=== PATIENT | female | born 1930 | race African-American/Black ===

== ENCOUNTER 2016-08-19 11:33 | Emergency (ER) | payer MEDICARE ==
[2016-08-19] MEDS ORDERED: NACL 0.9% 1000 ML 1,000 ML IV ONE (12:22)
[2016-08-19] MEDS ORDERED: ZOSYN/NS 3.375GM/50ML 3.375 GM/50 ML BAG IV ONE ×2 (12:23→15:46)
[2016-08-19 12:54] LABS: Basophils % (Auto) 0.2 % (0.0-1.8); Eosinophils % (Auto) 1.1 % (0.0-4.3); Hematocrit 40.5 % (30.3-42.9); Hemoglobin 13.8 gm/dl (10.1-14.3); Mean Corpuscular HGB Conc 34 % (30-34); Mean Corpuscular Hemoglobin 31 pg (28-32); Mean Corpuscular Volume 92 fl (79-97); Platelet Count 229 K/mm3 (140-440); Red Blood Count 4.39 M/mm3 (3.65-5.03); Red Cell Distribution Width 12.7 % (13.2-15.2); White Blood Count 9.1 K/mm3 (4.5-11.0)
[2016-08-19 13:02] LABS: Partial Thromboplastin Time 30.3 Sec. (24.2-36.6)
[2016-08-19 13:14] LABS: Alanine Aminotransferase 11 units/L (7-56); Albumin 3.4 g/dL (3.9-5); Albumin/Globulin Ratio 0.8 %; Alkaline Phosphatase 62 units/L (35-129); Anion Gap 17 mmol/L; Bilirubin,Total 0.9 mg/dL (0.1-1.2); Blood Urea Nitrogen 7 mg/dL (7-17); Calcium 8.6 mg/dL (8.4-10.2); Carbon Dioxide 27 mmol/L (22-30); Chloride 90.2 mmol/L (98-107); Glucose 114 mg/dL (65-100); Lipase 28 units/L (13-60); Potassium 3.6 mmol/L (3.6-5.0); Sodium 131 mmol/L (137-145); Total Protein 7.6 g/dL (6.3-8.2)
--- NOTE | 2016-08-19 13:14 | XRay Report ---
Single view chest: History: Abdominal pain. Findings: Cardiomegaly. Trachea is midline. Mild COPD. No acute consolidation no pleural effusion or pneumothorax. Impression: No acute cardiopulmonary findings.
[2016-08-19 13:39] LABS: Bilirubin,Direct < 0.2 mg/dL (0-0.2); Bilirubin,Indirect 0.7 mg/dL
--- NOTE | 2016-08-19 17:09 | Cat Scan Report ---
FINAL REPORT PROCEDURE: CT ABDOMEN PELVIS WO CON TECHNIQUE: Computerized axial tomography of the abdomen and pelvis was performed without intravenous contrast. This study is performed without intravascular contrast material and its sensitivity for abdominal and pelvic pathology, including neoplasms, inflammation, abscess, free fluid, thrombosis, arterial dissection and infarction, is reduced compared with a contrast enhanced study. The majority of the bowel is not opacified with oral contrast limiting evaluation as well. HISTORY: G tube study and abd distention COMPARISON: Contrast-enhanced CT of the abdomen and pelvis 01/17/2013 FINDINGS: Visualized lower thorax: No significant abnormality. Liver: Few stable cysts the largest of which is of the posterior segment of the right lobe 11 millimeters. Spleen: Normal size and attenuation. Gallbladder and biliary system: Normal. Pancreas: Visualized portions normal. Partially obscured by beam hardening artifact from dense contrast within the adjacent stomach and duodenum. Adrenals: Normal. Kidneys: 3 millimeter lower pole right renal calculus. Unremarkable left kidney. Cysts seen previously with IV contrast not visualized. GI tract: NG tube in place. Injected oral contrast within the stomach and 1st and 2nd portion of the duodenum. No contrast extravasation. Mild sigmoid diverticulosis. No bowel obstruction. The appendix is normal. Lymph nodes and mesentery: Normal. Vasculature: Calcific atherosclerosis. No abdominal aortic aneurysm. Bladder: Normal. Reproductive organs: Normal. Peritoneum: No free fluid. Musculoskeletal structures: Stable degenerative changes of the spine. Other: None. IMPRESSION: G-tube within the stomach. Injected oral contrast within the stomach. No contrast extravasation. Stable in size hepatic cysts. Tiny right renal calculus. Stable degenerative changes of the spine. Mild sigmoid diverticulosis.
--- NOTE | 2016-08-19 18:23 | Emergency Department Report ---
ED General Adult HPI - General Chief complaint: Tube Replacement Stated complaint: G-TUBE PROBLEMS Time Seen by Provider: 08/19/16 12:18 Source: family Mode of arrival: Ambulatory Limitations: Altered Mental Status, Physical Limitation - History of Present Illness Initial comments: Patient's son was essentially concerned about the position of the G-tube and erythema about the site. He states that there is been some erythema about the site of the G-tube for the last few days. There's been no fever or chills. He denies any unusual bowel movement or urinary output. He states that he is able to use the G-tube and has been using it routinely. He was concerned that the fluid was passing freely into the G-tube rather than him seeing what he is describing as respiratory variations in the fluid when he feeds. Patient is status post intracranial hemorrhage and is unable to communicate. Otherwise the family has not identified any other change in her health status. -: days(s) - Related Data Home Medications Medication Instructions Recorded Confirmed Last Taken Albuterol Sulfate [Albuterol 0.63% 01/19/16 01/19/16 NEBS] Esomeprazole Magnesium [NexIUM] 40 mg PO QDAY 01/19/16 01/19/16 01/19/16 Menthol/Zinc Oxide [Calmoseptine 01/19/16 01/19/16 Ointment] Promethazine Dm [Phenergan DM 5 ml PO Q6H PRN 01/19/16 01/19/16 01/19/16 6.25-15 mg/5 ml] Ranitidine HCl 01/19/16 01/19/16 Simvastatin [Zocor TAB] 01/19/16 01/19/16 Transderm-Scop 5 ml FEEDTUBE Q6MIN PRN 01/19/16 01/19/16 01/19/16 amLODIPine [Norvasc] 5 mg PO DAILY 01/19/16 01/19/16 01/19/16 Previous Rx's Medication Instructions Recorded Last Taken Type Sulfamethoxazole/Trimethoprim 20 ml PO BID #140 ml 08/19/16 Unknown Rx [Bactrim 200-40 mg/5 ml Oral Liq] Allergies Allergy/AdvReac Type Severity Reaction Status Date / Time No Known Allergies Allergy Unverified 01/19/16 11:34 ED Review of Systems ROS: Stated complaint: G-TUBE PROBLEMS Other details as noted in HPI Comment: Unobtainable due to pts medical conditions ED Past Medical Hx - Past Medical History Previous Medical History?: Yes Hx Hypertension: Yes Hx CVA: Yes (hemmorragic stroke 2011) Hx Heart Attack/AMI: Yes Hx GERD: Yes Additional medical history: 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; aphasic; 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 - Surgical History Past Surgical History?: Yes Additional Surgical History: PEG Tube 2011 - Social History Smoking Status: Former Smoker Substance Use Type: None - Medications Home Medications: Home Medications Medication Instructions Recorded Confirmed Last Taken Type Albuterol Sulfate [Albuterol 0.63% 01/19/16 01/19/16 History NEBS] Esomeprazole Magnesium [NexIUM] 40 mg PO QDAY 01/19/16 01/19/16 01/19/16 History Menthol/Zinc Oxide [Calmoseptine 01/19/16 01/19/16 History Ointment] Promethazine Dm [Phenergan DM 5 ml PO Q6H PRN 01/19/16 01/19/16 01/19/16 History 6.25-15 mg/5 ml] Ranitidine HCl 01/19/16 01/19/16 History Simvastatin [Zocor TAB] 01/19/16 01/19/16 History Transderm-Scop 5 ml FEEDTUBE Q6MIN PRN 01/19/16 01/19/16 01/19/16 History amLODIPine [Norvasc] 5 mg PO DAILY 01/19/16 01/19/16 01/19/16 History Sulfamethoxazole/Trimethoprim 20 ml PO BID #140 ml 08/19/16 Unknown Rx [Bactrim 200-40 mg/5 ml Oral Liq] ED Physical Exam - General Limitations: Altered Mental Status, Physical Limitation General appearance: alert - Head Head exam: Present: atraumatic - Eye Eye exam: Absent: scleral icterus - ENT ENT exam: Present: mucous membranes moist - Neck Neck exam: Present: normal inspection. Absent: tenderness, meningismus - Respiratory Respiratory exam: Present: normal lung sounds bilaterally. Absent: respiratory distress - Cardiovascular Cardiovascular Exam: Present: regular rate, normal rhythm. Absent: systolic murmur, diastolic murmur, rubs, gallop - GI/Abdominal GI/Abdominal exam: Present: soft, normal bowel sounds, other (the G-tube site is erythematous perhaps to a 1-2 cm margin.). Absent: distended, tenderness, guarding, rebound, rigid - Extremities Exam Extremities exam: Present: other (contracted). Absent: pedal edema, calf tenderness - Neurological Exam Neurological exam: Present: other (functional quadriparesis) - Psychiatric Psychiatric exam: Present: flat affect - Skin Skin exam: Present: warm, dry, intact, other (G-tube site findings). Absent: rash ED Course Vital Signs 08/19/16 11:57 Temperature 98.2 F Pulse Rate 96 H Blood Pressure 122/62 O2 Sat by Pulse 95 Oximetry - Reevaluation(s) Reevaluation #1: Patient was given Zosyn and a liter of normal saline. She was found to be mildly hyponatremic. I believe that should be ample treatment for it at this juncture. She will be better served with home care and be exposed to the hospital environment. She will be discharged on Bactrim liquid. Follow-up instructions were discussed with the family as well as return criteria. 08/19/16 18:26 ED Medical Decision Making - Lab Data Result diagrams: 08/19/16 12:30 08/19/16 12:30 Laboratory Results - last 24 hr 08/19/16 08/19/16 08/19/16 12:30 12:30 12:30 WBC 9.1 RBC 4.39 Hgb 13.8 Hct 40.5 MCV 92 MCH 31 MCHC 34 RDW 12.7 L Plt Count 229 Lymph % (Auto) 14.3 [place] % (Auto) 13.3 H Eos % (Auto) 1.1 Baso % (Auto) 0.2 Lymph # 1.3 [place] # 1.2 H Eos # 0.1 Baso # 0.0 Seg Neutrophils % 71.1 H Seg Neutrophils # 6.4 PT 13.1 INR 1.00 APTT 30.3 Sodium Potassium Chloride Carbon Dioxide Anion Gap BUN Creatinine Estimated GFR BUN/Creatinine Ratio Glucose Calcium Total Bilirubin Direct Bilirubin Indirect Bilirubin AST ALT Alkaline Phosphatase Troponin T NT-Pro-B Natriuret Pep Total Protein Albumin Albumin/Globulin Ratio Amylase 35 Lipase Blood Type Antibody Screen 08/19/16 08/19/16 08/19/16 12:30 12:30 12:30 WBC RBC Hgb Hct MCV MCH MCHC RDW Plt Count Lymph % (Auto) [place] % (Auto) Eos % (Auto) Baso % (Auto) Lymph # [place] # Eos # Baso # Seg Neutrophils % Seg Neutrophils # PT INR APTT Sodium 131 L Potassium 3.6 Chloride 90.2 L Carbon Dioxide 27 Anion Gap 17 BUN 7 Creatinine 0.4 L Estimated GFR > 60 BUN/Creatinine Ratio 17.50 Glucose 114 H Calcium 8.6 Total Bilirubin 0.9 Direct Bilirubin < 0.2 Indirect Bilirubin 0.7 AST 17 ALT 11 Alkaline Phosphatase 62 Troponin T < 0.010 NT-Pro-B Natriuret Pep 153.5 Total Protein 7.6 Albumin 3.4 L Albumin/Globulin Ratio 0.8 Amylase Lipase 28 Blood Type O POSITIVE Antibody Screen Negative - Radiology Data Radiology results: report reviewed interpreted by me: CT Demonstrated the G-tube within the stomach with no extravasation of contrast. Chest x-ray showed no acute process Critical care attestation.: If time is entered above; I have spent that time in minutes in the direct care of this critically ill patient, excluding procedure time. ED Disposition Clinical Impression: Skin infection at gastrostomy tube site, Hyponatremia Disposition: DISCHARGED TO HOME OR SELFCARE Is pt being admited?: No Does the pt Need Aspirin: No Condition: Stable Instructions: Cellulitis (ED) Additional Instructions: You may continue to use the G-tube. Return if redness worsens despite antibiotics. Return any fever or change in patient's status if your concern. Follow-up with her primary care physician. Prescriptions: Sulfamethoxazole/Trimethoprim [Bactrim 200-40 mg/5 ml Oral Liq] 20 ml PO BID # 140 ml Referrals: PRIMARY CARE [Primary Care Provider] - 2-3 Days Time of Disposition: 18:31
[2016-08-19 19:31] VITALS: BP 124/66
== END 2016-08-19 19:37 | disposition home or self-care (01) ==
LOC: ED 11:33
DX: K94.22 Gastrostomy infection (principal); E87.1 Hypo-osmolality and hyponatremia; I10 Essential (primary) hypertension; I25.2 Old myocardial infarction; K21.9 Gastro-esophageal reflux disease without esophagitis; Z86.73 Personal history of transient ischemic attack (TIA), and cerebral infarction without residual deficits
CPT/HCPCS: 36415; 43760; 71010; 74176; 80048; 80074; 82150; 83690; 83880; 84484; 85025; 85610; 85730; 86850; 86900; 86901; 87040; 96365; 99284; J2543; J7030

== ENCOUNTER 2016-08-23 11:05 | Inpatient (IN) | payer MEDICAID, MEDICARE ==
[2016-08-23] MEDS ORDERED: WATER FOR INJ (PF) 10 ML ONE ×2 (11:35→12:07)
[2016-08-23 12:58] LABS: Basophils % (Auto) 0.2 % (0.0-1.8); Eosinophils % (Auto) 0.1 % (0.0-4.3); Hematocrit 39.6 % (30.3-42.9); Hemoglobin 13.2 gm/dl (10.1-14.3); Mean Corpuscular HGB Conc 33 % (30-34); Mean Corpuscular Hemoglobin 31 pg (28-32); Mean Corpuscular Volume 92 fl (79-97); Platelet Count 316 K/mm3 (140-440); Red Cell Distribution Width 12.1 % (13.2-15.2); White Blood Count 10.1 K/mm3 (4.5-11.0)
[2016-08-23 12:59] LABS: Anion Gap 14 mmol/L; Blood Urea Nitrogen 10 mg/dL (7-17); Calcium 8.7 mg/dL (8.4-10.2); Carbon Dioxide 27 mmol/L (22-30); Chloride 91.9 mmol/L (98-107); Glucose 88 mg/dL (65-100); Potassium 4.1 mmol/L (3.6-5.0); Sodium 129 mmol/L (137-145)
[2016-08-23] MEDS ORDERED: WATER FOR INJ (PF) IM ONE (13:00)
--- NOTE | 2016-08-23 13:36 | XRay Report ---
G-TUBE STUDY History: Evaluate PEG tube. Findings: A PEG tube is located in the left upper quadrant. On the group home manager image, the bowel gas pattern is unremarkable. A second image of the abdomen was obtained following injection of oral contrast through the PEG tube which outlines the stomach and multiple proximal small bowel loops. There is no evidence for extravasation or obstruction. Impression: Unremarkable PEG tube.
[2016-08-23] MEDS ORDERED: NACL 0.9% 1000 ML 1,000 ML IV ONE (14:31)
--- NOTE | 2016-08-23 14:48 | Admit Criteria Form ---
Admission Criteria Documentation: HYPONATREMIA; HYPERNATREMIA; HYPOKALEMIA; HYPERKALEMIA; HYPOCALCEMIA; HYPERCALCEMIA Clinical Indications for Inpatient Care (Place 'X' for any and all applicable criteria): Ongoing inpatient care may be indicated for ANY ONE of the following [G](1)(2)(3 )(5): [ X]I. Hyponatremia with ANY ONE of the following: [ X]a) Sodium less than 130 mEq/L (mmol/L) (new) (6)(22) [ ]b) Sodium less than 135 mEq/L (mmol/L) with ANY ONE of the following: [ ]i) Severe medical etiology requiring inpatient management (eg, heart failure, hypovolemia) [ ]ii) Altered mental status [ ]iii) Seizures [ ]II. Hypernatremia with ANY ONE of the following: [ ]a) Sodium greater than 155 mEq/L (mmol/L) [ ]b) Sodium greater than 150 mEq/L (mmol/L) with ANY ONE of the following: [ ] i) Altered mental status [ ]ii) Seizures [ ]iii) Severe medical etiology (eg, hypovolemia, diabetes insipidus) [ ]iv) Severe weakness [ ]v) Severe medical etiology (eg, hemolysis, infection, drug overdose) [ ]III. Hypokalemia with ANY ONE of the following: [ ]a) Potassium less than 2.5 mEq/L (mmol/L) despite outpatient and emergency treatment [ ]b) Potassium less than 3.0 mEq/L (mmol/L) with ANY ONE of the following: [ ]i) Weakness [ ]ii) Cardiac abnormality (eg, arrhythmia, conduction disturbance) [ ]iii) Cardiac ischemia [ ]iv) Ileus [ ]v) Ongoing medical cause requiring inpatient management. ( e.g., acute renal wasting, SIADH) [ ]vi) Other severe symptoms [ ] IV. Hyperkalemia with ANY ONE of the following: [ ]a) Potassium greater than 6.5 mEq/L (mmol/L) [ ]b) Potassium greater than 5 mEq/L (mmol/L) with ANY ONE of the following: [ ]i) Severe ECG findings [H] [ ]ii) Acute worsening of renal failure (creatinine greater than 2.5 mg/dL (221 micromoles/L) or significant elevation for age and size) [ ] V. Hypocalcemia with ANY ONE of the following: [ ]a) Calcium less than 7 mg/dL (1.75 mmol/L) despite outpatient and emergency treatment(19) [ ]b) Calcium less than 8 mg/dL (2 mmol/L) with significant symptoms or findings; examples include: [ ]i) Cardiac abnormality (eg, arrhythmia or conduction disturbance) [ ]ii) Altered mental status [ ]iii) Seizures [ ]iv) Breathing difficulty [ ]v) Muscle spasms [ ]. Hypercalcemia with ANY ONE of the following: [ ]a) Calcium greater than 14 mg/dL (3.5 mmol/L) [ ]b) Calcium greater than 12 mg/dL (3 mmol/L) with ANY ONE of the following: [ ]i) Significant dehydration or hypovolemia as indicated by ANY ONE of the following(2): [ ]1. Clinically significant dehydration as indicated by ANY ONE of the following: [ ]A. Acute loss of weight from baseline (5% of body weight in adults, 9% in pediatric patients) [ ]B. Hemodynamic instability [ ]C. Acute renal failure [ ]D. Serum sodium greater than 150 mEq/L (mmol/L) [ ]2) Dehydration that is persistent indicated by ALL of the following: [ ]A. Oral rehydration therapy not tolerated or insufficient to adequately correct dehydration [ ]B. Appropriate intravenous treatment (eg, fluids ) does not readily correct dehydration ie, after 12 to 24 hours of treatment) [ ]ii) Significant symptoms or findings; examples include: [ ]1) Altered mental status [ ]2) Cardiac abnormality (eg, arrhythmia, conduction disturbance) [ ]3) Cardiac abnormality (eg, arrhythmia, conduction disturbance) The original [employer] [facility] content created by [employer] has been revised. The portions of the content which have been revised are identified through the use of italic text or in bold, and [facility] has neither reviewed nor approved the modified material. All other unmodified content is copyright [facility] [employer] Please see references footnoted in the original [facility] [employer] edition 2016 Admission Criteria Met: Yes
--- NOTE | 2016-08-23 14:54 | Admit Criteria Form ---
Admission Criteria Documentation: GASTROENTEROLOGY GRG Clinical Indications for Admission to Inpatient Care (Place 'X' for any and all applicable criteria): Hospital admission is needed for appropriate care of the patient because of ANY ONE of the following: [ ]I. Hemoperitoneum(7) [ ]II. Ascites requiring acute treatment indicated by ANY ONE of the following( 8)(9): [ ]a) Hemodynamic instability remaining after emergency or observation level care (as appropriate) [ ]b) Peritoneal signs present (eg, abdominal rigidity, rebound tenderness, absent bowel sounds) [ ]c) Tachypnea, Hypoxemia, or other respiratory symptoms remain after emergency or observation level care (as appropriate) [ ]d) Suspected infected ascites as indicated by ANY ONE of the following: [ ]i) Temperature greater than 100 degrees F (37.8 degrees C) [ ]ii) Abdominal pain or tenderness not relieved by paracentesis [ ]iii) Systemic signs of infection (eg, elevated WBC count, fever) [ ]iv) Ascitic fluid analysis consistent with infection ( eg, elevated WBC count): [ ]v) Vital sign abnormality [ ]III. Suspected acute intra-abdominal process indicated by ANY ONE of the following(1)(2)(3)(4)(5): [ ]a) Hemodynamic instability [ ]b) Peritoneal signs present (eg, abdominal rigidity, rebound tenderness, absent bowel sounds) [ ]c) Bowel obstruction suspected (eg, severe vomiting, abdominal distension) [ ]d) Suspected mesenteric ischemia or ischemic colitis(6) [ ]e) Other signs or symptoms of acute abdominal disease (eg, severe pain, free air): [ ]IV. Severe liver disease indicated by ANY ONE of the following(8)(9)(10)(11)( 12)(13)(14): [ ]a) Acute hepatitis (eg, transaminase level greater than 1000 IU/L) [ ]b) Acute elevation of prothrombin time to more than 50% above normal or INR greater than 1.5 [ ]c) Bilirubin greater than 20 mg/dL (342 micromoles/L) (15) [ ]d) New-onset or worsening hepatic encephalopathy [ ]e) Acute liver necrosis [ ]f) Vomiting or dehydration that is severe of persistent [ ]g) Hemodynamic instability due to liver disease [ ]h) Acute renal failure [ ]i) Hepatic abscess [ ]j) Dehydration that is severe or persistent [ ]k) Hepatic hydrothorax(21) [ ]l) Other indications of severe liver disease (eg, persistent fever , ingestion of hepatotoxin) [ ]V. Severe diarrhea indicated by ANY ONE of the following(17)(18)(19)(20)(21)( 22)(23): [ ]a) High fever or other high-risk infection situation [ ]b) Intractable bloody diarrhea (eg, more than 6 bloody stools per day) [ ]c) Suspected Clostridium difficile-associated diarrhea(24) [ ]d) Change in mental status that persists after emergency or observation level care (as appropriate) [ ]e) Severe dehydration (eg, greater than 9% loss of body weight in children) [ ]f) Inability to maintain hydration [ ]g) Peritoneal signs present (eg, abdominal rigidity, rebound tenderness, absent bowel sounds) [ ]h) Abdominal ischemia suspected(6) [ ]i) Hemodynamic instability that persists after emergency or observation level care (as appropriate) [ ]j) Severe electrolyte abnormalities requiring inpatient care [ ]k) Acute renal failure [ ]. Suspected toxic megacolon(5)(6) [ ]VII.Severe dysphagia indicated by ANY ONE of the following(25)(26): [ ]a) Suspected esophageal perforation or fistula(27) [ ]b) Suspected cause that requires inpatient care (eg, caustic ingestion, severe esophagitis) (28) [ ]c) Severe dehydration (eg, greater than 9% loss of body weight in children) [ ]d) Inability to manage secretions or maintain hydration [ ]e) Hemodynamic instability that persists after emergency or observation level care (as appropriate) [ ]f) Severe electrolyte abnormalities requiring inpatient care [ ]g) Acute renal failure [ ]VIII.Vomiting and ANY ONE of the following (29)(30)(31)(32): [ ]a) High fever or other high-risk infection situation [ ]b) Change in mental status that persists after emergency or observation level care (as appropriate) [ ]c) Severe dehydration (e.g., greater than 9% loss of body weight in children) [ ]d) Peritoneal signs present (e.g., abdominal rigidity, rebound tenderness, absent bowel sounds) [ ]e) Hemodynamic instability that persists after emergency or observation level care (as appropriate) [ ]f) Severe electrolyte abnormalities requiring inpatient care [ ]g) Acute renal failure [ ]h) Bowel obstruction suspected (e.g., severe vomiting, abdominal distension) [ ]i) Vomiting that is severe or persistent after medical treatment [ ]IX. Significant dehydration indicated by ANY ONE of the following(23)(24)(25) [ ]a) Clinical findings of severe dehydration indicated by ANY ONE of the following: [ ]i) Acute loss of weight from baseline (5% of body weight in adults, 9% in pediatric patients) [ ]ii) Hemodynamic instability [ ]iii) Acute renal failure [ ]iv) Serum sodium greater than 150 mEq/L (mmol/L) [ ]b) Dehydration that is persistent indicated by ALL of the following: [ ]i) Oral rehydration therapy not tolerated or insufficient to adequately correct dehydration [ ]ii) Appropriate intravenous treatment (eg, fluids) does not readily correct dehydration hours of (ie, after 12 to 24 of treatment) [ ]X. Gastroparesis and ANY ONE of the following(37)(38)(39): [ ]a) Dehydration that is severe or persistent [ ]b) Severe electrolyte abnormalities requiring inpatient care [ ]c) Acute renal failure [ ]d) Vomiting that is severe or persistent [ ]XI. Complications of transplanted liver indicated by ANY ONE of the following (40)(41): [ ]a) Acute graft rejection requiring inpatient management (eg, intravenous immunosuppression)(42) [ ]b) Failure of transplanted liver as indicated by ANY ONE of the following: [ ]i) Acute hepatitis (eg, transaminase level greater than 1000 International Units per liter (IU/L)) [ ]ii) Acute elevation of prothrombin time to more than 50% above baseline or INR greater than 1.5 [ ]iii) Bilirubin greater than 20 mg/dL (342 micromoles/L) [ ]iv) New-onset or worsening hepatic encephalopathy [ ]v) Acute elevation of serum ammonia level (eg, greater than 210 mcg/dL (150 micromoles/L)) [ ]vi) Acute liver necrosis [ ]c) Infection requiring inpatient management (eg, Hemodynamic instability, need for intravenous antimicrobial treatment)(43)(44)(45)(46)(47)(48)(49)(50) [ ]d) Other complication of transplanted liver (eg, thrombosis, autoimmune hepatitis, variceal bleeding) requiring inpatient management(51)(52) [ ]XII Complications of transplanted pancreas indicated by ANY ONE of the following(53): [ ]a) Acute graft rejection requiring inpatient management (eg, intravenous immunosuppression)(42)(54) [ ]b) Failure of transplanted pancreas as indicated by ANY ONE of the following: [ ]i) Serum amylase greater than 3 times the upper limit of normal or baseline [ ]ii) Serum lipase greater than 3 times the upper limit of normal or baseline [ ]iii) Imaging findings consistent with pancreatic inflammation or necrosis [ ]c) Infection requiring inpatient management (eg, Hemodynamic instability, need for intravenous antimicrobial treatment)(43)(44)(45)(46)(47)(48)(49)(50) [ ]d) Other complication of transplanted liver (eg, thrombosis, autoimmune hepatitis, variceal bleeding) requiring inpatient management(51)(52) [ ]X. Gastroenterology condition and ALL of the following: [ ]a) Symptom or finding for which emergency and observation care have failed or are not considered appropriate (Also use General Criteria: Observation Care as appropriate) [ ]b) Presence of ANY ONE of the following: [ ]i) A General Admission Criteria [ ]ii) A Pediatric General Admission Criteria. The original [facility] content created by [employer] has been revised. The portions of the content which have been revised are identified through the use of italic text or in bold,and [facility] has neither reviewed nor approved the modified material. All other unmodified content is copyright [facility]. Please see references footnoted in the original [facility] [employer] edition 2016
--- NOTE | 2016-08-23 15:59 | Emergency Department Report ---
ED General Adult HPI - General Chief complaint: Tube Replacement Stated complaint: G-TUBE PROBLEMS Time Seen by Provider: 08/23/16 12:11 Source: patient, EMS Mode of arrival: Stretcher Limitations: Language Barrier, Physical Limitation, Other - History of Present Illness Initial comments: This is second time I have seen the patient over the last her days. On the prior occasion the son was concerned that he wasn't seeing fluid wave when he felt the patient. Describes usually seeing the movement of food up and down with in her tube presumed correlated with ventilation. She noted erythema around the site of the G-tube. Patient's G-tube was actually in a normal position when it was checked upon today. CT the abdomen was negative. The patient was somewhat hyponatremic. She was given normal saline. She remained clinically well and thereby she was discharged. The patient's son or grandson returns with her today when the G-tube was dislodged. He denies any fever or chills. He denies any change in the patient' s mental status. She is nonverbal. She is total care. He denies her having any bedsores. She has not had any apparent change. -: days(s) Severity scale (0 -10): 0 - Related Data Home Medications Medication Instructions Recorded Confirmed Last Taken Albuterol Sulfate [Albuterol 0.63% 01/19/16 01/19/16 NEBS] Esomeprazole Magnesium [NexIUM] 40 mg PO QDAY 01/19/16 01/19/16 01/19/16 Menthol/Zinc Oxide [Calmoseptine 01/19/16 01/19/16 Ointment] Promethazine Dm [Phenergan DM 5 ml PO Q6H PRN 01/19/16 01/19/16 01/19/16 6.25-15 mg/5 ml] Ranitidine HCl 01/19/16 01/19/16 Simvastatin [Zocor TAB] 01/19/16 01/19/16 Transderm-Scop 5 ml FEEDTUBE Q6MIN PRN 01/19/16 01/19/16 01/19/16 amLODIPine [Norvasc] 5 mg PO DAILY 01/19/16 01/19/16 01/19/16 Previous Rx's Medication Instructions Recorded Last Taken Type Sulfamethoxazole/Trimethoprim 20 ml PO BID #140 ml 08/19/16 Unknown Rx [Bactrim 200-40 mg/5 ml Oral Liq] Allergies Allergy/AdvReac Type Severity Reaction Status Date / Time No Known Allergies Allergy Unverified 01/19/16 11:34 ED Review of Systems ROS: Stated complaint: G-TUBE PROBLEMS Other details as noted in HPI Comment: Unobtainable due to pts medical conditions ED Past Medical Hx - Past Medical History Previous Medical History?: Yes Hx Hypertension: Yes Hx CVA: Yes (hemmorragic stroke 2011) Hx Heart Attack/AMI: Yes Hx GERD: Yes Additional medical history: 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; aphasic; 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 - Surgical History Past Surgical History?: Yes Hx Open Heart Surgery: Yes (bypass per son) Additional Surgical History: PEG Tube 2011 - Social History Smoking Status: Former Smoker Substance Use Type: None - Medications Home Medications: Home Medications Medication Instructions Recorded Confirmed Last Taken Type Albuterol Sulfate [Albuterol 0.63% 01/19/16 01/19/16 History NEBS] Esomeprazole Magnesium [NexIUM] 40 mg PO QDAY 01/19/16 01/19/16 01/19/16 History Menthol/Zinc Oxide [Calmoseptine 01/19/16 01/19/16 History Ointment] Promethazine Dm [Phenergan DM 5 ml PO Q6H PRN 01/19/16 01/19/16 01/19/16 History 6.25-15 mg/5 ml] Ranitidine HCl 01/19/16 01/19/16 History Simvastatin [Zocor TAB] 01/19/16 01/19/16 History Transderm-Scop 5 ml FEEDTUBE Q6MIN PRN 01/19/16 01/19/16 01/19/16 History amLODIPine [Norvasc] 5 mg PO DAILY 01/19/16 01/19/16 01/19/16 History Sulfamethoxazole/Trimethoprim 20 ml PO BID #140 ml 08/19/16 Unknown Rx [Bactrim 200-40 mg/5 ml Oral Liq] ED Physical Exam - General Limitations: Language Barrier, Physical Limitation, Other (nonverbal patient) General appearance: alert, in no apparent distress - Head Head exam: Present: atraumatic, normocephalic - Eye Eye exam: Present: normal appearance - ENT ENT exam: Present: mucous membranes moist - Neck Neck exam: Present: normal inspection. Absent: tenderness, meningismus - Respiratory Respiratory exam: Present: normal lung sounds bilaterally. Absent: respiratory distress - Cardiovascular Cardiovascular Exam: Present: regular rate, normal rhythm. Absent: systolic murmur, diastolic murmur, rubs, gallop - GI/Abdominal GI/Abdominal exam: Present: soft, normal bowel sounds, other (G-tube was dislodged). Absent: distended, tenderness, guarding, rebound, rigid - Extremities Exam Extremities exam: Present: normal inspection - Back Exam Back exam: Present: normal inspection - Neurological Exam Neurological exam: Present: alert, other (functional quadraparesis) - Psychiatric Psychiatric exam: Present: flat affect - Skin Skin exam: Present: warm, dry, intact, other. Absent: normal color (erythema around the G-tube. It looks improved compared to the prior day. There is some scaling suggesting an eczematous reaction), rash ED Course Vital Signs 08/23/16 08/23/16 11:18 11:26 Temperature 98.3 F Pulse Rate 74 Respiratory 18 18 Rate Blood Pressure 145/76 Blood Pressure 145/76 [Left] O2 Sat by Pulse 97 97 Oximetry - Reevaluation(s) Reevaluation #1: Patient had a 22 Hungarian G-tube. It was loose. It was replaced with the largest one had available which was a 26 Hungarian. G-tube study was normal. Patient was found to have recurrent hyponatremia. IV fluids were initiated. Dr. Santos has admitted the patient for further care and GI consultation with Dr. Farr 08/23/16 16:07 ED Medical Decision Making - Lab Data Result diagrams: 08/23/16 12:28 08/23/16 12:28 - Radiology Data Radiology results: report reviewed Critical care attestation.: If time is entered above; I have spent that time in minutes in the direct care of this critically ill patient, excluding procedure time. ED Disposition Clinical Impression: Dislodged gastrostomy tube, Hyponatremia Disposition: OP ADMITTED IP TO THIS HOSP Is pt being admited?: Yes Does the pt Need Aspirin: Yes Condition: Stable Referrals: PRIMARY CARE, [Primary Care Provider] - 3-5 Days Time of Disposition: 16:09
[2016-08-23] MEDS ORDERED: BABY ASPIRIN PO ONE (16:09)
[2016-08-23] MEDS ORDERED: NON-FORMULARY (Esomeprazole Magnesium [Nexium] 40 MG) PO SCH (17:00)
[2016-08-23] MEDS ORDERED: ALBUTEROL SULFATE IH SCH (18:00)
[2016-08-23] MEDS ORDERED: LOVENOX SUB-Q ONE (18:37)
[2016-08-23] MEDS ORDERED: PROTONIX IV ONE (18:37)
[2016-08-23] MEDS: PROTONIX IV SCH (18:45)
[2016-08-23] MEDS: LOVENOX SUB-Q SCH (18:46)
[2016-08-23 19:30] LABS: Bilirubin,Urine NEG (Negative); Blood,Urine NEG (Negative); Ketones,Urine NEG (Negative); Leukocyte Esterase,Urine NEG (Negative); Nitrite,Urine NEG (Negative); Protein,Urine <15 mg/dL mg/dL (Negative); RBC,Urine < 1.0 /HPF (0.0-6.0); Urobilinogen,Urine < 2.0 mg/dL (<2.0); WBC,Urine < 1.0 /HPF (0.0-6.0)
[2016-08-23] MEDS: PROVENTIL IH SCH (21:04)
[2016-08-23] MEDS ORDERED: BACITRACIN ZINC OINT TP SCH (22:00)
[2016-08-24] MEDS: BACITRACIN (ED) OINT PACKET TP SCH ×2 (00:41→10:58)
[2016-08-24] MEDS: NACL 0.9% 1000 ML 1,000 ML IV SCH ×2 (03:16→18:20)
[2016-08-24 06:25] LABS: Basophils % (Auto) 0.7 % (0.0-1.8); Eosinophils % (Auto) 0.8 % (0.0-4.3); Hematocrit 40.9 % (30.3-42.9); Hemoglobin 13.4 gm/dl (10.1-14.3); Mean Corpuscular HGB Conc 33 % (30-34); Mean Corpuscular Hemoglobin 31 pg (28-32); Mean Corpuscular Volume 94 fl (79-97); Platelet Count 323 K/mm3 (140-440); Red Blood Count 4.37 M/mm3 (3.65-5.03); Red Cell Distribution Width 12.5 % (13.2-15.2); White Blood Count 8.5 K/mm3 (4.5-11.0)
[2016-08-24 06:41] LABS: Anion Gap 17 mmol/L; Blood Urea Nitrogen 8 mg/dL (7-17); Calcium 8.1 mg/dL (8.4-10.2); Carbon Dioxide 24 mmol/L (22-30); Chloride 96.4 mmol/L (98-107); Glucose 77 mg/dL (65-100); Potassium 3.4 mmol/L (3.6-5.0); Sodium 134 mmol/L (137-145)
--- NOTE | 2016-08-24 07:27 | Event Note ---
Date: 08/23/16 See H/p in reports Hyponatremia Peg tube malfunction-replaced in ER CVA-with Aphasia and Dysphagia Bedridden-taken care at home
[2016-08-24] MEDS ORDERED: SIMPLE SYRUP FEEDTUBE PRN ×4 (07:39→14:58)
[2016-08-24] MEDS ORDERED: PANCREAZE DR 10,500 UNIT FEEDTUBE PRN ×2 (07:39→14:58)
[2016-08-24] MEDS ORDERED: SODIUM BICARBONATE FEEDTUBE PRN ×2 (07:39→14:58)
[2016-08-24] MEDS: PROVENTIL IH SCH (08:48)
--- NOTE | 2016-08-24 09:36 | History and Physical Report ---
CHIEF COMPLAINT: PEG tube malfunction. HISTORY OF PRESENT ILLNESS: An 86-year-old [place] female with a history of CVA with severe right hemiplegia and dysphagia and aphasia, bedridden totally, brought in second time to the ER for PEG tube not functioning well. Also, redness around the PEG tube. The PEG tube was replaced in the ER but workup revealed low sodium. Because of low sodium, the patient is being admitted. The patient is normally staring into the space without any interaction with anyone. PAST MEDICAL HISTORY: Significant for: 1. Cerebrovascular accident. 2. Hypertension. 3. Gastroesophageal reflux disease. 4. Asthma. CURRENT MEDICATIONS: Albuterol 0.63 nebulizers q.i.d. p.r.n., Nexium 40 mg p.o. via PEG q.d., menthol zinc oxide ointment for the PEG tube site, Phenergan liquid 5 mL q.6h. p.r.n., ranitidine 150 mg q.12h., simvastatin 20 mg q.12h., once a day, and amlodipine 5 mg p.o. daily. ALLERGIES: No known allergies. PAST MEDICAL HISTORY: As mentioned, cerebrovascular accident; hypertension; acute [place]; gastroesophageal reflux disease; right-sided hemiplegia; aphasia; and dysphagia. PAST SURGICAL HISTORY: History of bypass and PEG tube. SOCIAL HISTORY: Former smoker. Receives total care at home. Not in the [facility]. FAMILY HISTORY: Significant for hypertension. REVIEW OF SYSTEMS: CONSTITUTIONAL: Bedridden, staring into the space, not able to speak. HEENT: Unremarkable. Pupils equal and reactive. NECK: No neck stiffness. CARDIOVASCULAR AND RESPIRATORY: No shortness of breath, no chest pain, no palpitations. GASTROINTESTINAL: PEG tube malfunction and redness around the PEG tube site. GENITOURINARY: No dysuria, no flank pain. GOLD STAMPER: Right hemiplegia present. SKIN: Rash around the PEG tube site. A 14-point review of systems done, otherwise negative. PHYSICAL EXAMINATION: GENERAL: Elderly female, staring into the space. VITAL SIGNS: Temperature 98.3, pulse is 74, respirations 18. Blood pressure 145/76 and sats are 97%. HEENT: Unremarkable. Right facial palsy present. NECK: Supple. No lymphadenopathy, no thyromegaly. LUNGS AND CHEST: Clear to auscultation and percussion. Good air entry. CARDIOVASCULAR: S1, S2 heard. No gallop, no murmur, no rub. Apical impulse in left fifth intercostal space and midclavicular line. ABDOMEN: Soft and benign. PEG tube was replaced in the ER. PEG tube site, erythema surrounding the PEG tube secondary to leakage of PEG tube feeding till now. GENITOURINARY: No dysuria, no flank pain. GOLD STAMPER: Right-sided dense hemiplegia present, along with aphasia and dysphagia. SKIN: Erythema around the PEG tube site, 4 cm x 4 cm. EXTREMITIES: Good pedal pulses. No pedal edema. No movement in the right side. LABORATORY DATA: Significant for sodium of 129, BUN and creatinine of 10 and 0.5, otherwise labs are normal. ASSESSMENT AND PLAN: 1. Hyponatremia. IV normal saline for the time being. Recheck the sodium level. 2. PEG tube malfunction. PEG tube replaced. 3. The PEG tube site has mild cellulitis. Bacitracin ointment applied. We will get a Wound Care consult. Also, GI consult. 4. Gastroesophageal reflux disease. Continue Nexium 40 mg daily. 5. Hyperlipidemia. Continue simvastatin. 6. Hypertension. Continue amlodipine 5 mg daily. 7. Asthma. Continue with albuterol nebulizers q.i.d. p.r.n. 8. Deep venous thrombosis prophylaxis, Lovenox 40 mg subcutaneous daily. DISCHARGE PLANNING ISSUES: 1. Sodium is corrected and PEG tube site infection is addressed. May be discharged in 24-48 hours. The main problem is her moderate hyponatremia and PEG tube site mild cellulitis. The patient is total care at home and the family is willing to take care of her at home. No need for fpc facility at this point as per the patient's grandson. JOB# [id number] JIMENEZ/NTS
[2016-08-24] MEDS ORDERED: POTASSIUM CHLORIDE FEEDTUBE ONE (10:00)
--- NOTE | 2016-08-24 10:50 | Query- Immobilty ---
Umberto Best Date:_08/24/16 Power Wood Sawyer/CDS:Abdelrahman Brown Phone#:_[phone] Exercise your independent professional judgment when responding to this query. Questions asked do not imply a particular answer is desired or expected. We greatly appreciate your clarification on this issue. Clinical Documentation States: 86 Y/O Female admitted on 08/23/16 with History of CVA with severe right hemiplegia, dysphagia and aphasia, totally bedridden presents with a PEG tube not functioning properly. H&P states: "Patient is normally staring into space without any interaction with anyone" and "the patient is total care at home and the family is willing to take care of her at home" Clinical Findings Show: Please identify whether the condition is: [ ] Quadriplegia [ ] Other Quadriplegia [ ] Quadriplegia, C1-C4, Complete [ ] Functional Quadriplegia [ ] Quadriplegia, C1-C4, Incomplete [ ] Critical Illness Myopathy [ ] Quadriplegia, C5-C7, Complete [ ] Locked-in state [ ] Quadriplegia, C5-C7, Incomplete [ x ] Immobility due to frailty or Severe physical disability [ ] Other: [ ] Comment/Explanation: Present on Admission: [ x] Yes (Y) [ ] Clinically undeterminable (W) [ ] No (N) Please also document response in your Progress Notes and/or Discharge Summary and indicate if the condition was present on admission. ANGELICAD
[2016-08-24] MEDS: LOVENOX SUB-Q SCH (10:58)
[2016-08-24] MEDS ORDERED: PROTONIX PO SCH (11:00)
[2016-08-24] MEDS ORDERED: PROTONIX IV SCH (12:00)
[2016-08-24] MEDS: KCL 10MEQ/100ML 10 MEQ/100 ML BAG IV SCH ×4 (14:50→19:53)
--- NOTE | 2016-08-24 16:18 | Gastroenterology Consultation ---
History of Present Illness - Reason for Consult Consult date: 08/24/16 dislodged G tube Requesting physician: YIFAN MONIQUE - History of Present Illness Ms. Gottlieb is an 86 y/o female admitted with dislodged G tube. She has had a feeding tube x 4 years per her son. He reports it "fell out." It was replaced in the ED. We have been asked to assist with evaluation. Pt is S/P CVA in 2011. Past History Past Medical History: hypertension, stroke Past Surgical History: Other (G tube) Social history: lives with family. denies: smoking, alcohol abuse Family history: no significant family history Medications and Allergies Allergies Allergy/AdvReac Type Severity Reaction Status Date / Time No Known Allergies Allergy Unverified 01/19/16 11:34 Home Medications Medication Instructions Recorded Confirmed Last Taken Type Ranitidine HCl 150 mg FEEDTUBE BID 01/19/16 08/24/16 01/19/16 History Simvastatin [Zocor TAB] 20 mg FEEDTUBE DAILY 01/19/16 08/24/16 01/19/16 History amLODIPine [Norvasc] 5 mg FEEDTUBE DAILY 01/19/16 08/24/16 01/19/16 History Sulfamethoxazole/Trimethoprim 20 ml PO BID #140 ml 08/19/16 08/24/16 Unknown Rx [Bactrim 200-40 mg/5 ml Oral Liq] Carvedilol [Coreg] 3.125 mg FEEDTUBE BID 08/23/16 08/23/16 Unknown History Active Meds: Active Medications Lipase/Protease/Amylase (Pancreaze Dr 10,500 Unit) 1 each FEEDTUBE PRN PRN PRN Reason: For Clogged Feeding Tube Bacitracin (Bacitracin (Ed) Oint Packet) 1 applic TP BID JOSÉ Last Admin: 08/24/16 10:58 Dose: 1 applic Enoxaparin Sodium (Lovenox) 40 mg SUB-Q QDAY JOSÉ Last Admin: 08/24/16 10:58 Dose: 40 mg Sodium Chloride (Nacl 0.9% 1000 Ml) 1,000 mls @ 75 mls/hr IV DIRECT JOSÉ Last Admin: 08/24/16 03:16 Dose: 75 mls/hr Lidocaine HCl (Butt Paste/Lidocaine) 1 applic TP TID JOSÉ Pantoprazole Sodium (Protonix) 40 mg IV QDAY JOSÉ Last Admin: 08/24/16 14:51 Dose: 40 mg Simple Syrup (Simple Syrup) 15 ml FEEDTUBE PRN PRN PRN Reason: Hypoglycemia Simple Syrup (Simple Syrup) 30 ml FEEDTUBE PRN PRN PRN Reason: Hypoglycemia Sodium Bicarbonate (Sodium Bicarbonate) 325 mg FEEDTUBE PRN PRN PRN Reason: For Clogged Feeding Tube Review of Systems - Review of Systems ROS unobtainable: due to mental status Exam - Constitutional Vital Signs: Temp Pulse Resp BP Pulse Ox 98 F 74 16 149/76 93 08/24/16 09:06 08/24/16 09:06 08/24/16 11:00 08/24/16 09:06 08/24/16 09:06 General appearance: no acute distress - EENT Eyes: EOM intact ENT: hearing intact - Neck Neck: supple - Respiratory Respiratory: bilateral: diminished - Cardiovascular Rhythm: regular Heart Sounds: Present: S1 & S2 Extremities: abnormal (contracted, ) - Gastrointestinal General gastrointestinal: Present: soft, non-tender, other (TUBE site with erythema surounding, no drainage.) - Integumentary Integumentary: Present: warm, dry - Neurologic Neurological: alert and oriented x3, other (non verbal, totol care) - Labs CBC & Chem 7: 08/24/16 05:37 08/24/16 05:37 Lab Results: Laboratory Results - last 24 hr 08/23/16 08/24/16 08/24/16 17:10 05:37 05:37 WBC 8.5 RBC 4.37 Hgb 13.4 Hct 40.9 MCV 94 MCH 31 MCHC 33 RDW 12.5 L Plt Count 323 Lymph % (Auto) 21.3 [place] % (Auto) 11.1 H Eos % (Auto) 0.8 Baso % (Auto) 0.7 Lymph # 1.8 [place] # 0.9 H Eos # 0.1 Baso # 0.1 Seg Neutrophils % 66.1 Seg Neutrophils # 5.6 Sodium 134 L Potassium 3.4 L Chloride 96.4 L Carbon Dioxide 24 Anion Gap 17 BUN 8 Creatinine 0.4 L Estimated GFR > 60 BUN/Creatinine Ratio 20.00 Glucose 77 Calcium 8.1 L Urine Color Yellow Urine Turbidity Clear Urine pH 8.0 H Ur Specific Ennice 1.010 Urine Protein <15 mg/dl Urine Glucose (UA) Neg Urine Ketones Neg Urine Blood Neg Urine Nitrite Neg Urine Bilirubin Neg Urine Urobilinogen < 2.0 Ur Leukocyte Esterase Neg Urine WBC (Auto) < 1.0 Urine RBC (Auto) < 1.0 Amorphous Crystals Few Assessment and Plan 1. Dislodged G tube. -Replaced per ED. Will d/w Dr. Shields for further recommendations.
[2016-08-24 17:59] VITALS: BP 152/76
--- NOTE | 2016-08-24 18:35 | Discharge Summary ---
Providers - Providers Date of Admission: 08/23/16 16:10 Date of discharge: 08/24/16 Attending physician: YIFAN MONIQUE MD 08/23/16 16:11 Consult to Physician [CONS] Urgent Consulting Provider: REBECCA CHRISTIAN Reason For Exam: leaking J-tube Place consult to:: gastro Notified:: office Phone number called:: [phone] Was contact made?: Yes If yes, spoke with:: ant Time called:: 12:40 08/24/16 07:38 Consult to Dietitian/Nutrition [CONS] Routine Physician Instructions: Reason For Exam: Reason for Consult: Nutrition Recommendations Reason for Consult: Write/Manage Tube Feeding Consult to Wound/ET Nurse [CONS] Routine Reason For Exam: wound eval-peg site Primary care physician: SHOE IRONER Hospitalization Reason for admission: dislodged peg tube Condition: Stable Hospital course: Ms. Gottlieb is an 86 y/o female with history of CVA with severe right hemiplegia and dysphagia and aphasia totally bedridden and total care. Admitted with dislodged G tube. This was the second time in the ER. As the first time the son was concerned that the PEG was not functioning. Patient was admitted with low sodium and this was noted again on admission. She has had a feeding tube x 4 years per her son. He reports it "fell out." It was replaced in the ED. We have been asked to assist with evaluation. Pt is S/P CVA in 2011. The son denied any seizure-like activity or any adjustments in her medications. They do give her free water flushes but could not quantify the amount except stating that they used to large syringes. GI did evaluate the patient as the son Was Insistent on This and Recommended That the PEG Tube Was in Place and No Further Intervention Was Needed Imaging Studies Done Previously Also Confirmed the Same. I did discuss the free water flushes with the patient and quantified this that they should reduce to 1-1/2 syringes. An need to follow up on her sodium levels. During hospitalization the son refused nebulizer treatments states it was totally unnecessary. He also states that the patient was intolerant to aspirin and therefore is not on any antiplatelets and does not want anything changed her medications. Discharge diagnosis * Dislodged PEG tube * Recurrent hyponatremia * Right-sided hemiplegia * Dysphagia * Total care bedridden * Status post CVA Disposition: DISCHARGED TO HOME OR SELFCARE Time spent for discharge: 35 mins Core Measure Documentation - Palliative Care Palliative Care/ Comfort Measures: Not Applicable - Core Measures Any of the following diagnoses?: stroke - VTE Discharge Requirements Deep Vein Thrombosis/Pulmonary Embolism Present on Admission: No - Stroke Discharge Requirements Statin for LDL = or >70 mg/dl on DC: Yes Anticoag for atrial fib/atrial flutter: Not Applicable Antithrombotic for ischemic stroke: No Reason for no antithrombotic on DC: Drug Intolerance Exam - Physical Exam Narrative exam: VITAL SIGNS: Reviewed. GENERAL: The patient appeared well nourished and normally developed. Vital signs as documented. HEAD: No signs of head trauma. EYES: Pupils are equal. MOUTH: Oropharynx is normal. NECK: No adenopathy, no JVD. CHEST: Chest with clear breath sounds bilaterally. No wheezes, rales, or rhonchi. CARDIAC: Regular rate and rhythm. S1 and S2, without murmurs, gallops, or rubs. VASCULAR: No Edema. Peripheral pulses normal and equal in all extremities. ABDOMEN: Soft, PEG tube in place, no tenderness appreciated. No sign of distention. No rebound or guarding, and no masses palpated. Bowel Sounds normal. MUSCULOSKELETAL: Bedridden. Right sided hemiplegia present.. Extremities without clubbing, cyanosis or edema. NEUROLOGIC EXAM: Alert and oriented x 3. Aphasic, right-sided hemiplegia. PSYCHIATRIC: Mood normal. SKIN: No rash or lesions. - Constitutional Vitals: Temp Pulse Resp BP Pulse Ox 98.3 F 90 20 152/76 96 08/24/16 16:00 08/24/16 16:00 08/24/16 16:00 08/24/16 16:08/24/16 16:00 Plan Activity: advance as tolerated, fall precautions Diet: per dietitian instruction Follow up with: PRIMARY CARE, [Primary Care Provider] - 3-5 Days Prescriptions: Sulfamethoxazole/Trimethoprim [Bactrim 200-40 mg/5 ml Oral Liq] 20 ml PO BID # 100 ml
[2016-08-24] MEDS: PROTONIX IV SCH (18:42)
[2016-08-24] MEDS ORDERED: BUTT PASTE/LIDOCAINE TP SCH (20:00)
== END 2016-08-24 21:46 | disposition home or self-care (01) | DRG 393 ==
LOC: ED 11:05 → 3A 16:10
PROVIDERS: ADMIT Internal Medicine; ATTEND Internal Medicine
PROC: 0D20XUZ Change Feeding Device in Upper Intestinal Tract, External Approach (ICD-10-PCS; principal; 2016-08-23)
DX: K94.22 Gastrostomy infection (principal); R53.2 Functional quadriplegia; E87.1 Hypo-osmolality and hyponatremia; L03.311 Cellulitis of abdominal wall; I69.951 Hemiplegia and hemiparesis following unspecified cerebrovascular disease affecting right dominant side; K94.23 Gastrostomy malfunction; I10 Essential (primary) hypertension; K21.9 Gastro-esophageal reflux disease without esophagitis; J45.909 Unspecified asthma, uncomplicated; E78.5 Hyperlipidemia, unspecified; I25.2 Old myocardial infarction; Z87.891 Personal history of nicotine dependence; Z74.01 Bed confinement status; Z95.1 Presence of aortocoronary bypass graft; Z82.49 Family history of ischemic heart disease and other diseases of the circulatory system
CPT/HCPCS: 36415; 74000; 80048; 81001; 85025; 96372; 96374; A5122; C9113; J1650; J3480; J7030; Q9963